=== PATIENT | male | born 1950 | race Caucasian/White ===

== ENCOUNTER 2016-10-27 14:05 | Inpatient (IN) | payer OTHER ==
[2016-10-27 14:33] VITALS: BMI 32.9
--- NOTE | 2016-10-27 14:46 | PDOC ---
History of Present Illness - General History Source: Patient, Family Exam Limitations: No Limitations <Elvi Us - Last Filed: 10/27/16 20:40> <Denise Rollins - Last Filed: 10/28/16 18:55> - General Chief Complaint: Chest Pain Stated Complaint: LEFT LOWER RIB PAIN Time Seen by Provider: 10/27/16 14:21 - History of Present Illness Initial Comments: 10/27/16 14:56 The patient is a 66 year old male with no PMHx who presents to the ED with 10/ 10 sharp, non-radiating, left sided chest pain for 2 days. The patient reports the patient is exacerbated with breathing and movement. He reports associated difficulty breathing, secondary to pain. He reports the pain has progressively worsened since it began two days ago, and the area is now tender to palpation. He took aspirin last night with no relief. He also reports minimal cough and congestion for 3 days. He denies heavy lifting, recent falls or trauma. He denies fever, chills, nausea, vomiting, diarrhea. He denies abdominal pain, headache, dizziness. (Elvi Us) Past History <Elvi Us - Last Filed: 10/27/16 20:40> - Past Medical History Hypercholesterolemia: Yes (NO MEDS) - Psycho/Social/Smoking Cessation Hx Anxiety: No Suicidal Ideation: No Smoking History: Never smoked Hx Alcohol Use: No Drug/Substance Use Hx: No Substance Use Type: None <Denise Rollins - Last Filed: 10/28/16 18:55> - Past Medical History Allergies/Adverse Reactions: Allergies Allergy/AdvReac Type Severity Reaction Status Date / Time No Known Allergies Allergy Unverified 10/27/16 14:13 Home Medications: Ambulatory Orders NK [No Known Home Medication] 10/27/16 Review of Systems - Review of Systems Able to Perform ROS?: Yes <Elvi Us - Last Filed: 10/27/16 20:40> <Denise Rollins - Last Filed: 10/28/16 18:55> - Review of Systems Comments:: 10/27/16 14:56 GENERAL/CONSTITUTIONAL: No: fever, chills, weakness, loss of appetite. HEAD, EYES, EARS, NOSE AND THROAT:(+) congestion. No: change in vision, ear pain, discharge, sore throat, throat swelling. CARDIOVASCULAR: (+) left sided chest pain. No: lightheadedness, palpitations, syncope RESPIRATORY: (+) cough, shortness of breath. No: wheezing, hemoptysis, stridor. GASTROINTESTINAL: No: nausea, vomiting, abdominal cramping, diarrhea, rectal bleeding, constipation. GENITOURINARY: No: dysuria, hematuria, frequency, urgency, flank pain. MUSCULOSKELETAL: No: back pain, neck pain, joint pain, muscle swelling or pain SKIN AND BREASTS: No: lesions, pallor, rash or easy bruising. NEUROLOGIC: No: headache, vertigo, paresthesias, weakness ENDOCRINE: No: unexplained weight gain or loss HEMATOLOGIC/LYMPHATIC: No: anemia, easy bleeding, swelling nodes (Elvi Us) *Physical Exam <Elvi Us - Last Filed: 10/27/16 20:40> <Denise Rollins - Last Filed: 10/28/16 18:55> - Vital Signs Last Vital Signs Temp Pulse Resp BP Pulse Ox 99.8 F H 91 H 20 140/73 98 10/28/16 18:00 10/28/16 18:00 10/28/16 18:00 10/28/16 18:00 10/28/16 08:00 - Physical Exam Comments: 10/27/16 15:08 GENERAL: The patient appears uncomfortable. HEAD: Normal with no signs of trauma. EYES: PERRLA, EOMI, sclera anicteric, conjunctiva clear. ENT: Ears normal, nares patent, oropharynx clear without exudates. Moist mucous membranes. NECK: Normal range of motion, supple without lymphadenopathy, JVD, or masses. LUNGS: Chest is tender to palpation. Breath sounds equal, clear to auscultation bilaterally. No wheezes, and no crackles. HEART: Tachycardic rate and regular rhythm, normal S1 and S2 without murmur, rub or gallop. ABDOMEN: Soft, nontender, normoactive bowel sounds. No guarding, no rebound. EXTREMITIES: Normal range of motion, no edema. No clubbing or cyanosis. No erythema, or tenderness. NEUROLOGICAL: Cranial nerves II through XII grossly intact. Normal speech. No focal neurological deficits. MUSCULOSKELETAL: Back non-tender to palpation, no CVA tenderness SKIN: Warm, Dry, normal turgor, no rashes or lesions noted. (Elvi Us) Heart Score/ECG Review <Elvi Us - Last Filed: 10/27/16 20:40> #1 ECG reviewed & interpreted by me at: 14:48 <Denise Rollins - Last Filed: 10/28/16 18:55> #1 10/27/16 14:48 Twelve-lead EKG was performed and reviewed by me. There is normal sinus rhythm with a normal rate of 96bpm. The axis is normal. The intervals are normal - pr: 152ms, QRS:64ms, Qtc: 394ms. There are no ST or T wave abnormalities. (Denise Rollins) ED Treatment Course - LABORATORY CBC & Chemistry Diagram: 10/27/16 15:10 10/27/16 15:10 <Elvi Us - Last Filed: 10/27/16 20:40> - LABORATORY CBC & Chemistry Diagram: 10/28/16 05:35 10/28/16 05:35 <Denise Rollins - Last Filed: 10/28/16 18:55> - ADDITIONAL ORDERS Additional order review: 10/27/16 15:10 RBC 5.28 MCV 86.3 MCHC 34.3 RDW 11.5 L MPV 7.5 Neutrophils % 75.4 Lymphocytes % 14.4 Monocytes % 8.3 Eosinophils % 1.1 Basophils % 0.8 - RADIOLOGY Radiology Studies Ordered: Category Date Time Status CHEST CTA [CT] Stat CT Scan 10/27/16 17:10 Completed CHEST PA & LAT [RAD] Stat Radiology 10/27/16 14:47 Completed Radiograph Interpretation: 10/27/16 15:40 Chest X-Ray Reported by Dr. Forrest Esposito Impression: No acute intrathoracic abnormality seen. 10/27/16 19:30 Chest CTA Reported by Dr. Paul Mukherjee Impression: Acute pulmonary embolism is identified involving the left lower lobe artery and distal segmental branches. There is mild left lower lobe subpleural opacity laterally and posteriorly probably on the basis of mild edema associated with with previously described embolism. (Elvi Us) - Medications Given in the ED: ED Medications Discontinued Medications Generic Name Dose Route Start Last Admin Trade Name Freq PRN Reason Stop Dose Admin Acetaminophen 1,000 mg 10/28/16 04:22 10/28/16 04:34 Ofirmev Injection - IVPB 10/28/16 04:23 1,000 mg ONCE ONE Administration Morphine Sulfate 4 mg 10/27/16 15:04 10/27/16 15:10 Morphine Injection - IVPUSH 10/27/16 15:05 4 mg ONCE ONE Administration Morphine Sulfate 4 mg 10/27/16 17:17 10/27/16 17:20 Morphine Injection - IVPUSH 10/27/16 17:18 4 mg ONCE ONE Administration Medical Decision Making <Elvi Us - Last Filed: 10/27/16 20:40> <Denise Rollins - Last Filed: 10/28/16 18:55> - Medical Decision Making A portion of this note was documented by scribe services under my direction. I have reviewed the details of the note, within reason, and agree with the documentation with the following case summary and management plan written by me. 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) He denies chest wall trauma Insignificant cough No fevers or chills Yesterday, pain present but did not take pain medications (as it wasnt too bad)\ Today, he awoke with severe pain and has not been able to get comfortable No prior episodes like this Pt crying on examination No rash noted Bilateral breath sounds No traumatic injuries noted RRR No abd tenderness to palpation Will check labs including d dimer CXR Pain medication 10/27/16 15:42 Laboratory Tests 10/27/16 15:10 WBC 11.8 H Hgb 15.6 Hct 45.6 Plt Count 164 Neutrophils % 75.4 Lymphocytes % 14.4 10/27/16 15:43 CXR: no acute pathology 10/27/16 16:10 Laboratory Tests 10/27/16 15:10 Sodium 135 L Potassium 4.2 Chloride 105 Carbon Dioxide 26 BUN 13 Creatinine 0.8 Random Glucose 128 H 10/27/16 16:17 Pt pain improved slightly 10/27/16 16:21 10/27/16 17:10 Laboratory Tests 10/27/16 15:10 D-Dimer 1645 H 10/27/16 17:29 Pt reports more pain Will give morphine CTA ordered CTA demonstrated PE Call placed to Dr. Veras Awaiting response (? Heparin vs. Lovenox ) Pt signed out to Dr Patel Clinical Impression: Acute Pulmonary Embolism (Denise Rollins) *DC/Admit/Observation/Transfer <Elvi Us - Last Filed: 10/27/16 20:40> <Denise Rollins - Last Filed: 10/28/16 18:55> Diagnosis at time of Disposition: Pulmonary embolism - Discharge Dispostion Condition at time of disposition: Stable - Referrals - Attestations Scribe Attestion: 10/27/16 14:56 Documentation prepared by Elvi Us, acting as medical office coordinator for Denise Rollisn MD. (Elvi Us)
[2016-10-27] MEDS ORDERED: morphine CARPU-JECT 4 MG/1 ML DISP.SYRIN IVPUSH ONE ×2 (15:04→17:17)
[2016-10-27] MEDS ORDERED: morphine CARPU-JECT 10 MG/1 ML DISP.SYRIN ONE (15:05)
[2016-10-27 15:41] LABS: BASOPHIL 0.8 % (0-2.0); EOSINOPHIL 1.1 % (0-4.5); MCH 29.6 pg (25.7-33.7); MCHC 34.3 g/dl (32.0-35.9); MEAN CELL VOLUME 86.3 fl (80-96); MEAN PLT VOLUME 7.5 fl (7.5-11.1); NEUTROPHILS 75.4 % (42.8-82.8); PLATELET COUNT 164 K/MM3 (134-434); RDW 11.5 % (11.9-15.9); WHITE BLOOD COUNT 11.8 K/mm3 (4.0-10.0)
[2016-10-27 16:00] LABS: CPK(DFH) 99 IU/L (38-174)
[2016-10-27 16:01] LABS: ALBUMIN 3.3 g/dl (3.5-5.0); ALK PHOS 89 U/L (32-92); ANION GAP 4 (8-16); BILIRUBIN,TOTAL 0.8 mg/dl (0.2-1.0); CALCIUM 9.3 mg/dl (8.4-10.2); CO2 26 mmol/L (22-28); CREATININE 0.8 mg/dl (0.6-1.3); GLUCOSE,RANDOM 128 mg/dl (74-106); SGOT/AST 31 U/L (10-42); SGPT/ALT 24 U/L (10-40); TOT PROT 6.6 g/dl (6.4-8.3)
[2016-10-27 16:55] LABS: TROPONIN I (DFP) < 0.03 ng/ml (0.03-0.50)
[2016-10-27 19:27] LABS: ACTIVATED PTT 29.8 SECONDS (24.0-38.9)
--- NOTE | 2016-10-27 19:28 | PDOC ---
*Physical Exam - Vital Signs Last Vital Signs Temp Pulse Resp BP Pulse Ox 99.1 F 96 H 16 107/69 97 10/27/16 14:13 10/27/16 17:16 10/27/16 17:16 10/27/16 17:16 10/27/16 17:16 ED Treatment Course - LABORATORY CBC & Chemistry Diagram: 10/27/16 15:10 10/27/16 15:10 - ADDITIONAL ORDERS Additional order review: Laboratory Results 10/27/16 10/27/16 10/27/16 19:00 15:10 15:10 D-Dimer Sodium 135 L Potassium 4.2 Chloride 105 Carbon Dioxide 26 Anion Gap 4 L BUN 13 Creatinine 0.8 Creat Clearance w eGFR > 60 Random Glucose 128 H Calcium 9.3 Total Bilirubin 0.8 AST 31 ALT 24 Alkaline Phosphatase 89 Creatine Kinase 99 Troponin I < 0.03 L Total Protein 6.6 Albumin 3.3 L Stool Occult Blood Negative 10/27/16 15:10 D-Dimer 1645 H Sodium Potassium Chloride Carbon Dioxide Anion Gap BUN Creatinine Creat Clearance w eGFR Random Glucose Calcium Total Bilirubin AST ALT Alkaline Phosphatase Creatine Kinase Troponin I Total Protein Albumin Stool Occult Blood 10/27/16 15:10 RBC 5.28 MCV 86.3 MCHC 34.3 RDW 11.5 L MPV 7.5 Neutrophils % 75.4 Lymphocytes % 14.4 Monocytes % 8.3 Eosinophils % 1.1 Basophils % 0.8 - Medications Given in the ED: ED Medications Discontinued Medications Generic Name Dose Route Start Last Admin Trade Name Freq PRN Reason Stop Dose Admin Morphine Sulfate 4 mg 10/27/16 15:04 10/27/16 15:10 Morphine Injection - IVPUSH 10/27/16 15:05 4 mg ONCE ONE Administration Morphine Sulfate 4 mg 10/27/16 17:17 10/27/16 17:20 Morphine Injection - IVPUSH 10/27/16 17:18 4 mg ONCE ONE Administration Progress Note - Progress Note Progress Note: Care of this patient received from Dr. Rollins. [facility] Patient will be started on full dose IV heparin protocol. MELLO Farmer, in ICU at [facility] contacted as per request of Dr. Veras. After Dr. Veras and nurse practitioner Darian discussed the case, patient will be admitted to telemetry at [facility]. *DC/Admit/Observation/Transfer Diagnosis at time of Disposition: Pulmonary embolism Qualifiers: Pulmonary embolism type: other Chronicity: acute Acute cor pulmonale presence: without acute cor pulmonale Qualified Code(s): I26.99 - Other pulmonary embolism without acute cor pulmonale - Discharge Dispostion Condition at time of disposition: Stable Admit: Yes - Referrals - Patient Instructions - Post Discharge Activity
[2016-10-27 19:31] LABS: INR 1.19 (0.82-1.09); PROTHROMBIN TIME (PATIENT) 13.3 SEC (10.2-13.0)
[2016-10-27] MEDS ORDERED: HEPARIN INFUSION - 500 ML IVPB ONE (20:25)
[2016-10-27] MEDS: HEPARIN - 25,000 UNIT in SODIUM CHLORIDE 495 ML IV SCH (20:37)
[2016-10-27] MEDS ORDERED: ACETAMINOPHEN 325 MG TABLET (FP) PO PRN (21:20)
--- NOTE | 2016-10-27 21:44 | HP ---
Admitting History and Physical - Primary Care Physician PCP: Marissa Veras - Admission History of Present Illness: The patient is a 66 year old male with no PMHx who presents to the ED with 10/ 10 sharp, non-radiating, left sided chest pain for 2 days. The patient reports the patient is exacerbated with breathing and movement. He reports associated difficulty breathing, secondary to pain. He reports the pain has progressively worsened since it began two days ago, and the area is now tender to palpation. - Smoking History Smoking history: Never smoked - Alcohol/Substance Use Hx Alcohol Use: No Home Medications - Allergies Allergies/Adverse Reactions: Allergies Allergy/AdvReac Type Severity Reaction Status Date / Time No Known Allergies Allergy Unverified 10/27/16 14:13 - Home Medications Home Medications: Ambulatory Orders NK [No Known Home Medication] 10/27/16 Physical Examination Vital Signs: Vital Signs Temperature 100.2 F H 10/27/16 21:08 Pulse Rate 107 H 10/27/16 21:20 Respiratory Rate 21 10/27/16 21:34 Blood Pressure 111/76 10/27/16 21:20 O2 Sat by Pulse Oximetry (%) 96 10/27/16 21:20 Constitutional: Yes: No Distress HENT: Yes: Atraumatic Neck: Yes: Supple Cardiovascular: Yes: Regular Rate and Rhythm Respiratory: Yes: CTA Bilaterally Gastrointestinal: Yes: Normal Bowel Sounds Extremities: Yes: WNL Neurological: Yes: Alert, Oriented Labs: CBC, BMP 10/27/16 15:10 10/27/16 15:10 Problem List - Problems (1) Pulmonary embolism Assessment/Plan: iv heparin per protocol cardio and pulmonary consult will get dr dyer involved Code(s): I26.99 - OTHER PULMONARY EMBOLISM WITHOUT ACUTE COR PULMONALE Qualifiers: Pulmonary embolism type: other Chronicity: acute Acute cor pulmonale presence: without acute cor pulmonale Qualified Code(s): I26.99 - Other pulmonary embolism without acute cor pulmonale (2) Anxiety and depression Code(s): F41.9 - ANXIETY DISORDER, UNSPECIFIED F32.9 - MAJOR DEPRESSIVE DISORDER, SINGLE EPISODE, UNSPECIFIED (3) Chest pain Code(s): R07.9 - CHEST PAIN, UNSPECIFIED (4) HTN (hypertension) Code(s): I10 - ESSENTIAL (PRIMARY) HYPERTENSION
[2016-10-28] MEDS: HEPARIN - 25,000 UNIT in SODIUM CHLORIDE 495 ML IV SCH ×2 (04:04→20:40)
[2016-10-28] MEDS: HEPARIN NA (PORCINE) 5,000 UNITS/ML 1ML VIAL IVPUSH PRN (04:05)
[2016-10-28] MEDS ORDERED: HEPARIN NA (PORCINE) 5,000 UNITS/ML 1ML VIAL ONE (04:07)
[2016-10-28] MEDS ORDERED: ACETAMINOPHEN 1000 MG/100 ML VIAL (NON FORMULARY) IVPB ONE (04:22)
--- NOTE | 2016-10-28 04:31 | HOSP ---
Subjective - Review of Symptoms Events since last encounter: Was paged by the nurse at 4:00 am and mentioned that patient has been complaining of severe left sided chest pain. Went to assess the patient. Nurse mentioned that she called Dr. Veras but was unable to be reached, hence called the hospitalist service. As per the patient, his left sided chest pain has been getting worse, increases when he takes deep inspiration, stabbing in quality, 11/10 in intensity, radiating towards the left shoulder. But denies numbness, tingling sensation of the arms, palpitation, cough, abdominal pain, nausea or vomiting. Gives h/o flying to [place] (3 hours flight) 2 weeks back. Physical examination: Vitals; BP - 134/101mmHg; P-96bpm, Spo2-100 @ 2L nasal oxygen General: Awake, alert, oriented x 3, in mild respiratory distress. HEENT: EOM intact, no pallor or icterus. Chest: B/L equal air entry, breath sounds decreased on the left base than the right. No wheeze or crackles. CVS: Tachycardic, regular rate and rhythm, S1, S2 no murmur. Abdomen: Reducible umbilical hernia, soft, non tender, no organomegaly. Ext: No calf tenderness, b/l peripheral pulses palpable, no peripheral edema. A/P Patient is a 66 year old male with no PMHx who presents to the ED with 10/10 sharp, non-radiating, left sided chest pain for 2 days admitted with the diagnosis of Pulmonary Embolism. # Severe left sided chest pain likely due to Pulmonary embolism. Troponin x 1 negative Ordered IV tylenol one dose Will order CBC, CMP, Troponin stat, cxr Patient is already on IV Heparin protocol. If symptoms worsen, will inform Dr. Veras. Plan of care explained to the patient. He verbalized understanding. Physical Examination Vital Signs: Vital Signs Temperature 99.1 F 10/28/16 02:00 Pulse Rate 96 H 10/28/16 02:00 Respiratory Rate 20 10/28/16 02:00 Blood Pressure 126/86 10/28/16 02:00 O2 Sat by Pulse Oximetry (%) 96 10/28/16 00:28 Visit type - Emergency Visit Emergency Visit: Yes ED Registration Date: 10/27/16 Care time: The patient presented to the Emergency Department on the above date and was hospitalized for further evaluation of their emergent condition. - New Patient This patient is new to me today: Yes Date on this admission: 10/28/16 - Critical Care Critical Care patient: No
[2016-10-28 07:57] LABS: MCHC 33.7 g/dl (32.0-35.9); MEAN PLT VOLUME 7.7 fl (7.5-11.1); PLATELET COUNT 144 K/MM3 (134-434); RDW 12.6 % (11.9-15.9); WHITE BLOOD COUNT 11.2 K/mm3 (4.0-10.0)
[2016-10-28 08:26] LABS: ALBUMIN 2.6 g/dl (3.4-5.0); ALK PHOS 88 U/L (45-117); ANION GAP 12 (8-16); BILIRUBIN,TOTAL 0.8 mg/dL (0.2-1.0); CALCIUM 8.9 mg/dL (8.5-10.1); CO2 26 mmol/L (21-32); CREATININE 0.8 mg/dL (0.7-1.3); GLUCOSE,RANDOM 113 mg/dL (74-106); SGOT/AST 13 U/L (15-37); SGPT/ALT 19 U/L (12-78); TOT PROT 5.8 g/dl (6.4-8.2)
--- NOTE | 2016-10-28 09:12 | CON.CARD ---
Consult Consult Specialty:: cardiology Reason for Consultation:: shortness of breath; chest pain; acute PE. - History of Present Illness Chief Complaint: Pt A&Ox3; less dyspnea; depressed. History of Present Illness: The patient is a 66 year old male (b. [place]) with no PMHx ( nonsmoker; no alcohol), who presents to the ED with 10/10 sharp, non-radiating, left sided chest pain for 2 days. The patient reports the patient is exacerbated with breathing and movement. He reports associated difficulty breathing, secondary to pain. He reports the pain has progressively worsened since it began two days ago, and the area is now tender to palpation. He took aspirin last night with no relief. He also reports minimal cough and congestion for 3 days. He denies heavy lifting, recent falls or trauma. He denies fever, chills, nausea, vomiting, diarrhea. He denies abdominal pain, headache, dizziness. Pt says he flew to [place] from [place] two weeks ago, then went to watch a baseball game that night; he barely moved for hours while in the plane and at the game. He is depressed, saying he was never hospitalized before. - History Source History Provided By: Patient, Medical Record Limitations to Obtaining History: No Limitations - Past Medical History Psych: Yes: Anxiety, Depression (?reactive (frightened; says he has never been hospitalized before)) - Past Surgical History Additional Surgical History: right femur fracture repair (age 20). - Alcohol/Substance Use Hx Alcohol Use: No - Smoking History Smoking history: Never smoked Home Medications - Allergies Allergies/Adverse Reactions: Allergies Allergy/AdvReac Type Severity Reaction Status Date / Time No Known Allergies Allergy Unverified 10/27/16 14:13 - Home Medications Home Medications: Ambulatory Orders NK [No Known Home Medication] 10/27/16 Family Disease History - Family Disease History Family Disease History: Other: Mother (hip replacement in her 80s after MVA; complication-->rt leg AKA) Review of Systems - Review of Systems Constitutional: reports: No Symptoms Eyes: reports: No Symptoms HENT: reports: No Symptoms Neck: reports: No Symptoms Cardiovascular: reports: Chest Pain Musculoskeletal: reports: Muscle Pain Integumentary: reports: No Symptoms Neurological: reports: No Symptoms Endocrine: reports: No Symptoms Psychiatric: reports: Anxiety, Depression - Risk Factors Known Risk Factors: Yes: Age, Gender, Physical Inactivity, Other (overweight) Vital Signs: Vital Signs Temperature 98.1 F 10/28/16 08:00 Pulse Rate 88 10/28/16 08:00 Respiratory Rate 22 10/28/16 08:00 Blood Pressure 112/69 10/28/16 08:00 O2 Sat by Pulse Oximetry (%) 96 10/28/16 00:28 Constitutional: Yes: Anxious, Mild Distress Eyes: Yes: WNL HENT: Yes: WNL Neck: Yes: WNL Respiratory: Yes: Regular Gastrointestinal: Yes: Soft, Abdomen, Obese Renal/: No: Anuria Cardiovascular: Yes: Regular Rate and Rhythm JVD: No Carotid Bruit: No PMI: Non-Displaced Heart Sounds: Yes: S1, S2 Musculoskeletal: Yes: Muscle Pain, Muscle Weakness Extremities: Yes: Cool Edema: No Peripheral Pulses WNL: Yes Integumentary: Yes: WNL Neurological: Yes: WNL Psychiatric: Yes: Other (anxiety/depression) - Other Data Labs, Other Data: CBC, BMP 10/28/16 05:35 10/28/16 05:35 INR, PTT INR 1.19 (0.82-1.09) 10/27/16 19:00 Imaging - Results Cat Scan: Image Reviewed ( acute PE) EKG: Image Reviewed (NSR; LAE) Problem List - Problems (1) Pulmonary embolism Assessment/Plan: On IV heparin until oral agent (warfarin or NOAC) is started. F/u TSH and lipids. ECHO for LVEF and RVEF, chamber sizes. Code(s): I26.99 - OTHER PULMONARY EMBOLISM WITHOUT ACUTE COR PULMONALE Qualifiers: Pulmonary embolism type: other Chronicity: acute Acute cor pulmonale presence: without acute cor pulmonale Qualified Code(s): I26.99 - Other pulmonary embolism without acute cor pulmonale (2) HTN (hypertension) Code(s): I10 - ESSENTIAL (PRIMARY) HYPERTENSION (3) Anxiety and depression Assessment/Plan: pt is frightened; says he has never been hospitalized before. Observe; reassurance. Code(s): F41.9 - ANXIETY DISORDER, UNSPECIFIED F32.9 - MAJOR DEPRESSIVE DISORDER, SINGLE EPISODE, UNSPECIFIED
[2016-10-28] MEDS ORDERED: ACETAMINOPHEN 325 MG TABLET (FP) PO PRN (09:24)
[2016-10-28] MEDS ORDERED: oxyCODONE HCL 5 MG TABLET PO PRN (09:24)
[2016-10-28 11:08] LABS: CHOLESTEROL 135 mg/dL (50-200); LDL CHOLESTEROL (ONLY SJRH) 91 mg/dL (5-100)
--- NOTE | 2016-10-28 12:29 | PN ---
Progress Note (short form) - Note Progress Note: PULMONARY CONSULTATION DICTATED 10/29/15 IMP ACUTE PULMONARY EMBOLISM LIKELY PROVOKED SECONDARY TO RECENT TRAVEL CHEST PAIN SYNDROME SECONDARY TO ABOVE PLAN HEPARIN DUPLEX LOWER EXTREMITIES ECHO O2 W/U FOR HYPERCOAGULABLE STATE DR TOWNSEND Problem List - Problems (1) Pulmonary embolism Code(s): I26.99 - OTHER PULMONARY EMBOLISM WITHOUT ACUTE COR PULMONALE Qualifiers: Pulmonary embolism type: other Chronicity: acute Acute cor pulmonale presence: without acute cor pulmonale Qualified Code(s): I26.99 - Other pulmonary embolism without acute cor pulmonale (2) Chest pain Code(s): R07.9 - CHEST PAIN, UNSPECIFIED
--- NOTE | 2016-10-28 13:01 | CONS ---
DATE OF CONSULTATION: 10/28/2016 PULMONARY CONSULTATION REFERRING PHYSICIAN: Marissa Veras MD HISTORY OF PRESENT ILLNESS: The patient is a 66-year-old male who denies significant past medical history, nonsmoker, who was admitted to [facility] with complaint of 3-day history of increasing shortness of breath and left-sided sharp chest pain. The patient states that the pain started 3 days prior to admission. At the time he started having a little mild cough along with increasing shortness of breath. He also complained of left-sided chest pain increasing with inspiration of a 10/10 in severity. He denied any fevers or chills. Of note is he recently traveled to [place] and had a plane ride of about 3-1/[address] and he went to go and see the baseball classics. Apparently when getting off the plane in [place] he noticed that his lower extremities were swollen. He initially did not seek medical attention. He presented to the emergency room with the above. In the emergency room he was noted to have on CTA of the chest a left-sided pulmonary embolism. He was admitted to telemetry and started on intravenous heparin. The patient denies any previous history of DVT or PE in the past. There is no family history of DVT or pulmonary embolism. He denies any hemoptysis. He states that he has had a little weight loss in the past few weeks. He also noted has occasional sweats. 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 PAST MEDICAL HISTORY: Again is unremarkable. PAST SURGICAL HISTORY: He denies any previous surgeries. SOCIAL HISTORY: Nonsmoker. He previously worked as a welder fitter. REVIEW OF SYSTEMS: Positive shortness of breath. Positive left-sided chest pain. Possible mild fever. No nausea. No vomiting. Positive weight loss. Positive mild lower extremity edema. CURRENT MEDICATIONS: Includes heparin, Tylenol, and Roxicodone. PHYSICAL EXAMINATION: General: The patient is a well-developed, well-nourished male awake, alert, and in no acute distress. Vital Signs: He is currently afebrile. Heart rate is 88, O2 saturation is 98% on 2 liters nasal cannula, and blood pressure is 112/69. HEENT: Normocephalic, atraumatic. Neck: Supple. Heart: Regular, S1, S2. Chest: Clear. Abdomen: Soft, bowel sounds are positive. Extremities: No cyanosis or edema. LABORATORY DATA: WBCs of 11.2, hemoglobin of 13.3, hematocrit of 39.5, and a platelet count of 144,000. PTT of 53. D-dimer of 1645. BUN of 14 and creatinine of 0.8. Chest CT is as noted reveals an acute pulmonary embolism in the left lower lobe pulmonary artery. IMPRESSION: Acute pulmonary embolism likely provoked secondary to recent travel. PLAN: Continue intravenous heparin. Obtain echocardiogram. Duplex of lower extremities and also workup of hypercoagulable state. BREANN TOWNSEND M.D. [id number]
--- NOTE | 2016-10-28 18:31 | EKG ---
Test Reason : Blood Pressure : / mmHG Vent. Rate : 096 BPM Atrial Rate : 096 BPM P-R Int : 152 ms QRS Dur : 064 ms QT Int : 312 ms P-R-T Axes : 066 015 057 degrees QTc Int : 394 ms NORMAL SINUS RHYTHM POSSIBLE LEFT ATRIAL ENLARGEMENT BORDERLINE ECG NO PREVIOUS ECGS AVAILABLE Confirmed by AGUSTIN FUNG, SORAIDA ([id number]) on 10/28/2016 6:31:05 PM Referred By: MARYELLEN Confirmed By:SORAIDA VELEZ MD
--- NOTE | 2016-10-28 18:34 | PN ---
Progress Note, Physician - Current Medication List Current Medications: Active Medications Acetaminophen (Tylenol -) 650 mg PO Q6H PRN PRN Reason: FEVER OR PAIN Acetaminophen (Tylenol -) 325 mg PO Q4H PRN PRN Reason: PAIN Stop: 10/31/16 09:23 Heparin Sodium (Porcine) (Heparin -) 1,000 unit IVPUSH PRN PRN PRN Reason: Heparin Last Admin: 10/28/16 04:05 Dose: 1,000 unit Heparin Sodium (Porcine) (Heparin -) 5,000 unit IVPUSH PRN PRN PRN Reason: Heparin Heparin Sodium (Porcine) 25, (000 unit/ Sodium Chloride) 500 mls @ 20 mls/hr IV TITR MARILUZ; 1,000 UNIT/HR PRN Reason: Protocol Last Titration: 10/28/16 11:11 Dose: 1,100 unit/hr Oxycodone HCl (Roxicodone -) 5 mg PO Q4H PRN PRN Reason: PAIN - Objective Vital Signs: Vital Signs Temperature 99.8 F H 10/28/16 18:00 Pulse Rate 91 H 10/28/16 18:00 Respiratory Rate 20 10/28/16 18:00 Blood Pressure 140/73 10/28/16 18:00 O2 Sat by Pulse Oximetry (%) 98 10/28/16 08:00 Constitutional: Yes: No Distress HENT: Yes: Atraumatic Neck: Yes: Supple Cardiovascular: Yes: Regular Rate and Rhythm Respiratory: Yes: CTA Bilaterally Gastrointestinal: Yes: Normal Bowel Sounds Extremities: Yes: WNL Neurological: Yes: Alert, Oriented Labs: CBC, BMP 10/28/16 05:35 10/28/16 05:35 INR, PTT INR 1.19 (0.82-1.09) 10/27/16 19:00 Problem List - Problems (1) Pulmonary embolism Assessment/Plan: on iv heparin doppler b/l dottie ordered Code(s): I26.99 - OTHER PULMONARY EMBOLISM WITHOUT ACUTE COR PULMONALE Qualifiers: Pulmonary embolism type: other Chronicity: acute Acute cor pulmonale presence: without acute cor pulmonale Qualified Code(s): I26.99 - Other pulmonary embolism without acute cor pulmonale (2) Chest pain Assessment/Plan: probably due to PE troponin negative Code(s): R07.9 - CHEST PAIN, UNSPECIFIED (3) HTN (hypertension) Code(s): I10 - ESSENTIAL (PRIMARY) HYPERTENSION
--- NOTE | 2016-10-28 21:17 | CONSULT ---
Consult - text type - Consultation Consultation Note: The patient is a 66 year old male (b. [facility] [place]) with no PMHx ( nonsmoker; no alcohol), who presented with sharp, non-radiating, left sided chest pain for 2 days. The patient reports the patient is exacerbated with breathing and movement. He reports associated difficulty breathing, secondary to pain. He also reports minimal cough and congestion for 3 days. He denies heavy lifting, recent falls or trauma. He denies fever, chills, nausea, vomiting , diarrhea. He denies abdominal pain, headache, dizziness. Pt says he flew to [place] from [place] two weeks ago, then went to watch a baseball game that night; he barely moved while in the plane and at the game. - Smoking History Smoking history: Never smoked No h/o alcohol Family h/o noncontributory Home Medications - Allergies Allergies/Adverse Reactions: Allergies Allergy/AdvReac Type Severity Reaction Status Date / Time No Known Allergies Allergy Unverified 10/27/16 14:13 - Home Medications Home Medications: Ambulatory Orders NK [No Known Home Medication] 10/27/16 Vital Signs: Vital Signs Temperature 98.1 F 10/28/16 08:00 Pulse Rate 88 10/28/16 08:00 Respiratory Rate 22 10/28/16 08:00 Blood Pressure 112/69 10/28/16 08:00 O2 Sat by Pulse Oximetry (%) 96 10/28/16 00:28 HEENT: MICHAEL, EOM Intact Oropharynx: No thrush, No mucositis Neck: Supple Nodes: Without adenopathy Cor: RSR, No murmurs, No gallops Lungs: Clear to P&A Abd: Soft, Normal bowel sounds, No organomegaly Ext:No significant edema Abnormal Lab Results 10/28/16 10/28/16 10/28/16 05:35 05:35 10:25 WBC 11.2 H PTT (Actin FS) 53.4 H Random Glucose 113 H AST 13 L Total Protein 5.8 L Albumin 2.6 L HDL Cholesterol TSH 10/28/16 10/28/16 10:25 10:25 WBC PTT (Actin FS) Random Glucose AST Total Protein Albumin HDL Cholesterol 39 L TSH < 0.01 L Current Medications Generic Name Dose Route Start Last Admin Trade Name Freq PRN Reason Stop Dose Admin Acetaminophen 650 mg 10/27/16 21:20 Tylenol - PO Q6H PRN FEVER OR PAIN Acetaminophen 325 mg 10/28/16 09:24 10/28/16 20:35 Tylenol - PO 10/31/16 09:23 325 mg Q4H PRN Administration PAIN Heparin Sodium (Porcine) 1,000 unit 10/27/16 20:22 10/28/16 04:05 Heparin - IVPUSH 1,000 unit PRN PRN Administration Heparin Heparin Sodium (Porcine) 5,000 unit 10/27/16 20:22 Heparin - IVPUSH PRN PRN Heparin Heparin Sodium (Porcine) 25, 500 mls @ 20 mls/hr 10/27/16 20:30 10/28/16 20:40 000 unit/ Sodium Chloride IV 22 mls/hr TITR MARILUZ Administration Protocol 1,000 UNIT/HR Oxycodone HCl 5 mg 10/28/16 09:24 10/28/16 20:35 Roxicodone - PO 5 mg Q4H PRN Administration PAIN A/P 66 y/o male with LLL lobar/segmental PE, presenting with pleuritic chest pain. Recent travel to [place] 2weeks ago. ? provoked DVT On heparin drip normal baseline Pt/PTT/renal function/liver enzymes.platelets [id number] Could consider switching to NOACs--- Eliquis 10mg bid for 7days followed by 5mg bid OR Xeralto 15mg bid for 3 weeks followed by 20mg daily with food Will need age appropriate malignancy w/u reports having had colonoscopy a year ago which was nl per patient not anemic. prostate cancer screening as out patient will discuss with primary team
[2016-10-29 07:46] LABS: INR 1.22 (0.82-1.09); PROTHROMBIN TIME (PATIENT) 13.5 SEC (9.98-11.88)
[2016-10-29 07:49] LABS: ACTIVATED PTT 34.9 SECONDS (26.9-34.4)
[2016-10-29] MEDS ORDERED: HEPARIN NA (PORCINE) 5,000 UNITS/ML 1ML VIAL ONE (08:18)
[2016-10-29] MEDS: HEPARIN NA (PORCINE) 5,000 UNITS/ML 1ML VIAL IVPUSH PRN (08:19)
[2016-10-29] MEDS: HEPARIN - 25,000 UNIT in SODIUM CHLORIDE 495 ML IV SCH ×2 (08:20→20:35)
--- NOTE | 2016-10-29 10:24 | PN ---
Progress Note, Physician Chief Complaint: Pt A&Ox3; + chest pain when breathes in deeply; had left thigh pain starting 10 days ago, which is now intermittent and mild History of Present Illness: The patient is a 66 year old male (b. [place]) with no PMHx ( nonsmoker; no alcohol), who presents to the ED with 10/10 sharp, non-radiating, left sided chest pain for 2 days. The patient reports the patient is exacerbated with breathing and movement. He reports associated difficulty breathing, secondary to pain. He reports the pain has progressively worsened since it began two days ago, and the area is now tender to palpation. He took aspirin last night with no relief. He also reports minimal cough and congestion for 3 days. He denies heavy lifting, recent falls or trauma. He denies fever, chills, nausea, vomiting, diarrhea. He denies abdominal pain, headache, dizziness. Pt says he flew to [place] from [place] two weeks ago, then went to watch a baseball game that night; he barely moved for hours while in the plane and at the game. He is depressed, saying he was never hospitalized before. - Current Medication List Current Medications: Active Medications Acetaminophen (Tylenol -) 650 mg PO Q6H PRN PRN Reason: FEVER OR PAIN Acetaminophen (Tylenol -) 325 mg PO Q4H PRN PRN Reason: PAIN Stop: 10/31/16 09:23 Last Admin: 10/28/16 20:35 Dose: 325 mg Heparin Sodium (Porcine) (Heparin -) 1,000 unit IVPUSH PRN PRN PRN Reason: Heparin Last Admin: 10/28/16 04:05 Dose: 1,000 unit Heparin Sodium (Porcine) (Heparin -) 5,000 unit IVPUSH PRN PRN PRN Reason: Heparin Last Admin: 10/29/16 08:19 Dose: 5,000 unit Heparin Sodium (Porcine) 25, (000 unit/ Sodium Chloride) 500 mls @ 20 mls/hr IV TITR MARILUZ; 1,000 UNIT/HR PRN Reason: Protocol Last Admin: 10/29/16 08:20 Dose: 25 mls/hr Oxycodone HCl (Roxicodone -) 5 mg PO Q4H PRN PRN Reason: PAIN Last Admin: 10/28/16 20:35 Dose: 5 mg - Objective Vital Signs: Vital Signs Temperature 99.7 F H 10/29/16 07:37 Pulse Rate 89 10/29/16 07:37 Respiratory Rate 18 10/29/16 07:43 Blood Pressure 124/77 10/29/16 07:37 O2 Sat by Pulse Oximetry (%) 98 10/29/16 07:43 Constitutional: Yes: Anxious Eyes: Yes: WNL HENT: Yes: WNL Neck: Yes: WNL Cardiovascular: Yes: WNL Respiratory: Yes: Diminished Gastrointestinal: Yes: WNL ...Rectal Exam: Yes: Deferred Genitourinary: No: Anuria Breast(s): Yes: WNL Musculoskeletal: Yes: WNL Extremities: Yes: WNL Edema: No Peripheral Pulses WNL: Yes Integumentary: Yes: WNL Neurological: Yes: WNL Psychiatric: Yes: Other (anxiety/depression) Labs: CBC, BMP 10/28/16 05:35 10/28/16 05:35 INR, PTT INR 1.22 (0.82-1.09) H 10/29/16 05:35 - ....Imaging EKG: Image Reviewed (NSR) Other: Other (telemetry: no arrhythmias) Problem List - Problems (1) Pulmonary embolism Assessment/Plan: On IV heparin until oral agent (warfarin or NOAC) is started. TSH < 0.01: f/u TFTs. LDL cholesterol 91 mg/dL. ECHO for LVEF and RVEF, chamber sizes. Code(s): I26.99 - OTHER PULMONARY EMBOLISM WITHOUT ACUTE COR PULMONALE Qualifiers: Pulmonary embolism type: other Chronicity: acute Acute cor pulmonale presence: without acute cor pulmonale Qualified Code(s): I26.99 - Other pulmonary embolism without acute cor pulmonale (2) HTN (hypertension) Code(s): I10 - ESSENTIAL (PRIMARY) HYPERTENSION (3) Anxiety and depression Assessment/Plan: pt is still frightened; says he has never been hospitalized before. Continue observation; reassurance. Code(s): F41.9 - ANXIETY DISORDER, UNSPECIFIED F32.9 - MAJOR DEPRESSIVE DISORDER, SINGLE EPISODE, UNSPECIFIED
--- NOTE | 2016-10-29 11:12 | PN ---
Progress Note, Physician History of Present Illness: PULMONARY ALERT,FEELING BETTER,LESS DYSPNEIC,LESS CP. DUPLEX +LLE DVT - Current Medication List Current Medications: Active Medications Acetaminophen (Tylenol -) 650 mg PO Q6H PRN PRN Reason: FEVER OR PAIN Acetaminophen (Tylenol -) 325 mg PO Q4H PRN PRN Reason: PAIN Stop: 10/31/16 09:23 Last Admin: 10/28/16 20:35 Dose: 325 mg Heparin Sodium (Porcine) (Heparin -) 1,000 unit IVPUSH PRN PRN PRN Reason: Heparin Last Admin: 10/28/16 04:05 Dose: 1,000 unit Heparin Sodium (Porcine) (Heparin -) 5,000 unit IVPUSH PRN PRN PRN Reason: Heparin Last Admin: 10/29/16 08:19 Dose: 5,000 unit Heparin Sodium (Porcine) 25, (000 unit/ Sodium Chloride) 500 mls @ 20 mls/hr IV TITR MARILUZ; 1,000 UNIT/HR PRN Reason: Protocol Last Admin: 10/29/16 08:20 Dose: 25 mls/hr Oxycodone HCl (Roxicodone -) 5 mg PO Q4H PRN PRN Reason: PAIN Last Admin: 10/28/16 20:35 Dose: 5 mg - Objective Vital Signs: Vital Signs Temperature 99.7 F H 10/29/16 07:37 Pulse Rate 89 10/29/16 07:37 Respiratory Rate 18 10/29/16 07:43 Blood Pressure 124/77 10/29/16 07:37 O2 Sat by Pulse Oximetry (%) 98 10/29/16 07:43 Constitutional: Yes: Well Nourished, Calm Eyes: Yes: WNL HENT: Yes: WNL Neck: Yes: WNL Cardiovascular: Yes: Regular Rate and Rhythm, S1, S2 Respiratory: Yes: CTA Bilaterally Gastrointestinal: Yes: WNL Extremities: Yes: WNL Edema: No Labs: CBC, BMP 10/28/16 05:35 10/28/16 05:35 INR, PTT INR 1.22 (0.82-1.09) H 10/29/16 05:35 Problem List - Problems (1) Pulmonary embolism Code(s): I26.99 - OTHER PULMONARY EMBOLISM WITHOUT ACUTE COR PULMONALE Qualifiers: Pulmonary embolism type: other Chronicity: acute Acute cor pulmonale presence: without acute cor pulmonale Qualified Code(s): I26.99 - Other pulmonary embolism without acute cor pulmonale (2) Chest pain Code(s): R07.9 - CHEST PAIN, UNSPECIFIED Assessment/Plan IMP ACUTE PULMONARY EMBOLISM LIKELY PROVOKED SECONDARY TO RECENT TRAVEL CHEST PAIN SYNDROME SECONDARY TO ABOVE PLAN HEPARIN CONSIDER XARELTOELIQUIS DUPLEX LOWER EXTREMITIES ECHO O2 W/U FOR HYPERCOAGULABLE STATE DR TOWNSEND Problem List - Problems (1) Pulmonary embolism Code(s): I26.99 - OTHER PULMONARY EMBOLISM WITHOUT ACUTE COR PULMONALE Qualifiers: Pulmonary embolism type: other Chronicity: acute Acute cor pulmonale presence: without acute cor pulmonale Qualified Code(s): I26.99 - Other pulmonary embolism without acute cor pulmonale (2) Chest pain Code(s): R07.9 - CHEST PAIN, UNSPECIFIED
--- NOTE | 2016-10-29 17:20 | PN ---
Progress Note, Physician History of Present Illness: stable - Current Medication List Current Medications: Active Medications Acetaminophen (Tylenol -) 650 mg PO Q6H PRN PRN Reason: FEVER OR PAIN Acetaminophen (Tylenol -) 325 mg PO Q4H PRN PRN Reason: PAIN Stop: 10/31/16 09:23 Last Admin: 10/28/16 20:35 Dose: 325 mg Heparin Sodium (Porcine) (Heparin -) 1,000 unit IVPUSH PRN PRN PRN Reason: Heparin Last Admin: 10/28/16 04:05 Dose: 1,000 unit Heparin Sodium (Porcine) (Heparin -) 5,000 unit IVPUSH PRN PRN PRN Reason: Heparin Last Admin: 10/29/16 08:19 Dose: 5,000 unit Heparin Sodium (Porcine) 25, (000 unit/ Sodium Chloride) 500 mls @ 20 mls/hr IV TITR MARILUZ; 1,000 UNIT/HR PRN Reason: Protocol Last Admin: 10/29/16 08:20 Dose: 25 mls/hr Oxycodone HCl (Roxicodone -) 5 mg PO Q4H PRN PRN Reason: PAIN Last Admin: 10/28/16 20:35 Dose: 5 mg - Objective Vital Signs: Vital Signs Temperature 98.7 F 10/29/16 14:00 Pulse Rate 86 10/29/16 14:00 Respiratory Rate 19 10/29/16 14:00 Blood Pressure 119/71 10/29/16 14:00 O2 Sat by Pulse Oximetry (%) 98 10/29/16 07:43 Constitutional: Yes: No Distress HENT: Yes: Atraumatic Neck: Yes: Supple Cardiovascular: Yes: Regular Rate and Rhythm Respiratory: Yes: CTA Bilaterally Gastrointestinal: Yes: Normal Bowel Sounds Extremities: Yes: WNL Neurological: Yes: Alert, Oriented Labs: CBC, BMP 10/28/16 05:35 10/28/16 05:35 INR, PTT INR 1.22 (0.82-1.09) H 10/29/16 05:35 Problem List - Problems (1) Pulmonary embolism Assessment/Plan: on iv heparin doppler b/l dottie ...DVT LLEX Code(s): I26.99 - OTHER PULMONARY EMBOLISM WITHOUT ACUTE COR PULMONALE Qualifiers: Pulmonary embolism type: other Chronicity: acute Acute cor pulmonale presence: without acute cor pulmonale Qualified Code(s): I26.99 - Other pulmonary embolism without acute cor pulmonale (2) Chest pain Code(s): R07.9 - CHEST PAIN, UNSPECIFIED (3) HTN (hypertension) Code(s): I10 - ESSENTIAL (PRIMARY) HYPERTENSION
--- NOTE | 2016-10-29 17:37 | PN ---
Progress Note (short form) - Note Progress Note: PAtient seen and examined Denies any complaints Last Vital Signs Temp Pulse Resp BP Pulse Ox 98.7 F 86 19 119/71 98 10/29/16 14:00 10/29/16 14:00 10/29/16 14:00 10/29/16 14:00 10/29/16 07:43 HEENT: MICHAEL, EOM Intact Oropharynx: No thrush, No mucositis Cor: RSR, No murmurs, No gallops Lungs: Clear to P&A Abd: Soft, Normal bowel sounds, No organomegaly Ext:No significant edema Skin: No rashes, Integument intact Abnormal Lab Results 10/29/16 10/29/16 10/29/16 05:35 09:50 14:20 INR 1.22 H PTT (Actin FS) 34.9 H D 50.1 H D Free T4 2.70 H Active Medications Generic Name Dose Route Start Last Admin Trade Name Freq PRN Reason Stop Dose Admin Acetaminophen 650 mg 10/27/16 21:20 Tylenol - PO Q6H PRN FEVER OR PAIN Acetaminophen 325 mg 10/28/16 09:24 10/28/16 20:35 Tylenol - PO 10/31/16 09:23 325 mg Q4H PRN Administration PAIN Heparin Sodium (Porcine) 1,000 unit 10/27/16 20:22 10/28/16 04:05 Heparin - IVPUSH 1,000 unit PRN PRN Administration Heparin Heparin Sodium (Porcine) 5,000 unit 10/27/16 20:22 10/29/16 08:19 Heparin - IVPUSH 5,000 unit PRN PRN Administration Heparin Heparin Sodium (Porcine) 25, 500 mls @ 20 mls/hr 10/27/16 20:30 10/29/16 08:20 000 unit/ Sodium Chloride IV 25 mls/hr TITR MARILUZ Administration Protocol 1,000 UNIT/HR Oxycodone HCl 5 mg 10/28/16 09:24 10/28/16 20:35 Roxicodone - PO 5 mg Q4H PRN Administration PAIN A/P 66 y/o male with LLL lobar/segmental PE, presenting with pleuritic chest pain. Recent travel to [place] 2weeks ago. ? provoked DVT On heparin drip normal baseline Pt/PTT/renal function/liver enzymes.platelets [id number] Could consider switching to NOACs--- Xeralto 15mg bid for 3 weeks followed by 20mg daily with food. Start at the time of heparin discontinuation Will need age appropriate malignancy w/u reports having had colonoscopy a year ago which was nl per patient not anemic. prostate cancer screening as out patient low TSH/high fT4--endocrine consult will discuss with primary team
--- NOTE | 2016-10-29 22:28 | EKG ---
Test Reason : Blood Pressure : / mmHG Vent. Rate : 088 BPM Atrial Rate : 088 BPM P-R Int : 164 ms QRS Dur : 076 ms QT Int : 340 ms P-R-T Axes : 053 017 042 degrees QTc Int : 411 ms NORMAL SINUS RHYTHM NONSPECIFIC T WAVE ABNORMALITY ABNORMAL ECG WHEN COMPARED WITH ECG OF 27-OCT-2016 14:12, NONSPECIFIC T WAVE ABNORMALITY, WORSE IN LATERAL LEADS Confirmed by AGUSTIN FUNG, SORAIDA ([id number]) on 10/29/2016 10:27:49 PM Referred By: Gabby SCHNEIDER Confirmed By:SORAIDA VELEZ MD
[2016-10-30 07:47] LABS: BASOPHIL 0.4 % (0-2.0); EOSINOPHIL 8.7 % (0-4.5); MCHC 34.3 g/dl (32.0-35.9); MEAN CELL VOLUME 84.4 fl (80-96); MEAN PLT VOLUME 7.5 fl (7.5-11.1); NEUTROPHILS 54.7 % (42.8-82.8); PLATELET COUNT 182 K/MM3 (134-434); WHITE BLOOD COUNT 7.5 K/mm3 (4.0-10.0)
[2016-10-30 07:54] LABS: ALBUMIN 2.4 g/dl (3.4-5.0); ANION GAP 9 (8-16); CALCIUM 9.1 mg/dL (8.5-10.1); CO2 27 mmol/L (21-32); GLUCOSE,RANDOM 101 mg/dL (74-106)
[2016-10-30 07:58] LABS: ALK PHOS 81 U/L (45-117); BILIRUBIN,TOTAL 0.4 mg/dL (0.2-1.0); CREATININE 0.8 mg/dL (0.7-1.3); SGOT/AST 21 U/L (15-37); SGPT/ALT 25 U/L (12-78); TOT PROT 5.8 g/dl (6.4-8.2)
[2016-10-30 08:14] LABS: INR 1.21 (0.82-1.09); PROTHROMBIN TIME (PATIENT) 13.4 SEC (9.98-11.88)
[2016-10-30 08:16] LABS: ACTIVATED PTT 39.4 SECONDS (26.9-34.4)
[2016-10-30] MEDS: HEPARIN NA (PORCINE) 5,000 UNITS/ML 1ML VIAL IVPUSH PRN ×2 (09:17→21:03)
[2016-10-30] MEDS: HEPARIN - 25,000 UNIT in SODIUM CHLORIDE 495 ML IV SCH ×2 (09:18→21:02)
--- NOTE | 2016-10-30 10:53 | PN ---
Progress Note, Physician History of Present Illness: PULMONARY ALERT,FEELING BETTER,LESS CP,-SOB - Current Medication List Current Medications: Active Medications Acetaminophen (Tylenol -) 650 mg PO Q6H PRN PRN Reason: FEVER OR PAIN Acetaminophen (Tylenol -) 325 mg PO Q4H PRN PRN Reason: PAIN Stop: 10/31/16 09:23 Last Admin: 10/28/16 20:35 Dose: 325 mg Heparin Sodium (Porcine) (Heparin -) 1,000 unit IVPUSH PRN PRN PRN Reason: Heparin Last Admin: 10/28/16 04:05 Dose: 1,000 unit Heparin Sodium (Porcine) (Heparin -) 5,000 unit IVPUSH PRN PRN PRN Reason: Heparin Last Admin: 10/30/16 09:17 Dose: 5,000 unit Heparin Sodium (Porcine) 25, (000 unit/ Sodium Chloride) 500 mls @ 20 mls/hr IV TITR MARILUZ; 1,000 UNIT/HR PRN Reason: Protocol Last Admin: 10/30/16 09:18 Dose: 28 mls/hr Oxycodone HCl (Roxicodone -) 5 mg PO Q4H PRN PRN Reason: PAIN Last Admin: 10/28/16 20:35 Dose: 5 mg - Objective Vital Signs: Vital Signs Temperature 98.4 F 10/30/16 07:15 Pulse Rate 74 10/30/16 07:15 Respiratory Rate 18 10/30/16 07:17 Blood Pressure 139/82 10/30/16 07:15 O2 Sat by Pulse Oximetry (%) 97 10/30/16 07:17 Constitutional: Yes: Well Nourished, Calm Eyes: Yes: WNL HENT: Yes: WNL Neck: Yes: WNL Cardiovascular: Yes: Regular Rate and Rhythm, S1, S2 Respiratory: Yes: CTA Bilaterally Gastrointestinal: Yes: Normal Bowel Sounds, Soft Extremities: Yes: WNL Edema: No Labs: CBC, BMP 10/30/16 05:32 10/30/16 05:32 INR, PTT INR 1.21 (0.82-1.09) H 10/30/16 05:32 Problem List - Problems (1) Pulmonary embolism Code(s): I26.99 - OTHER PULMONARY EMBOLISM WITHOUT ACUTE COR PULMONALE Qualifiers: Pulmonary embolism type: other Chronicity: acute Acute cor pulmonale presence: without acute cor pulmonale Qualified Code(s): I26.99 - Other pulmonary embolism without acute cor pulmonale (2) Chest pain Code(s): R07.9 - CHEST PAIN, UNSPECIFIED Assessment/Plan IMP ACUTE PULMONARY EMBOLISM LIKELY PROVOKED SECONDARY TO RECENT TRAVEL CHEST PAIN SYNDROME SECONDARY TO ABOVE LLE DVT PLAN HEPARIN CONSIDER XARELTO,ELIQUIS ECHO O2 W/U FOR HYPERCOAGULABLE STATE DR TOWNSEND Problem List - Problems (1) Pulmonary embolism Code(s): I26.99 - OTHER PULMONARY EMBOLISM WITHOUT ACUTE COR PULMONALE Qualifiers: Pulmonary embolism type: other Chronicity: acute Acute cor pulmonale presence: without acute cor pulmonale Qualified Code(s): I26.99 - Other pulmonary embolism without acute cor pulmonale (2) Chest pain Code(s): R07.9 - CHEST PAIN, UNSPECIFIED
--- NOTE | 2016-10-30 11:26 | PN ---
Progress Note, Physician History of Present Illness: seen and examined today in nad. no overnight events. no new complaints. - Current Medication List Current Medications: Active Medications Acetaminophen (Tylenol -) 650 mg PO Q6H PRN PRN Reason: FEVER OR PAIN Acetaminophen (Tylenol -) 325 mg PO Q4H PRN PRN Reason: PAIN Stop: 10/31/16 09:23 Last Admin: 10/28/16 20:35 Dose: 325 mg Heparin Sodium (Porcine) (Heparin -) 1,000 unit IVPUSH PRN PRN PRN Reason: Heparin Last Admin: 10/28/16 04:05 Dose: 1,000 unit Heparin Sodium (Porcine) (Heparin -) 5,000 unit IVPUSH PRN PRN PRN Reason: Heparin Last Admin: 10/30/16 09:17 Dose: 5,000 unit Heparin Sodium (Porcine) 25, (000 unit/ Sodium Chloride) 500 mls @ 20 mls/hr IV TITR MARILUZ; 1,000 UNIT/HR PRN Reason: Protocol Last Admin: 10/30/16 09:18 Dose: 28 mls/hr Oxycodone HCl (Roxicodone -) 5 mg PO Q4H PRN PRN Reason: PAIN Last Admin: 10/28/16 20:35 Dose: 5 mg - Objective Vital Signs: Vital Signs Temperature 98.4 F 10/30/16 07:15 Pulse Rate 74 10/30/16 07:15 Respiratory Rate 18 10/30/16 07:17 Blood Pressure 139/82 10/30/16 07:15 O2 Sat by Pulse Oximetry (%) 97 10/30/16 07:17 Constitutional: Yes: Well Nourished, No Distress, Calm Eyes: Yes: WNL, Conjunctiva Clear, EOM Intact, PERRL HENT: Yes: WNL, Atraumatic, Normocephalic Neck: Yes: WNL, Supple, Trachea Midline Cardiovascular: Yes: WNL, Regular Rate and Rhythm, S1, S2. No: Bradycardia, Tachycardia, Pulse Irregular, Bruit, JVD, Gallop, Murmur, Rub, S3, S4, Varicosities Respiratory: Yes: WNL, Regular, CTA Bilaterally. No: Rales, Rhonchi, Wheezes Gastrointestinal: Yes: WNL, Normal Bowel Sounds, Soft. No: Distention, Tenderness Musculoskeletal: Yes: WNL Extremities: Yes: WNL Edema: Yes Peripheral Pulses WNL: Yes Peripheral Pulses: Left Doralis Pedis: 2+, Right Dorsalis Pedis: 2+ Integumentary: Yes: WNL Neurological: Yes: WNL, Alert, Oriented, Cran Nerves II-XII Intact ...Motor Strength: WNL Psychiatric: Yes: WNL, Alert, Oriented Labs: CBC, BMP 10/30/16 05:32 10/30/16 05:32 INR, PTT INR 1.21 (0.82-1.09) H 10/30/16 05:32 - ....Imaging Chest X-ray: Report Reviewed, Image Reviewed EKG: Report Reviewed, Image Reviewed Other: Report Reviewed, Image Reviewed (tele-nsr, sinus tach, apcs) Problem List - Problems (1) Anxiety and depression Code(s): F41.9 - ANXIETY DISORDER, UNSPECIFIED F32.9 - MAJOR DEPRESSIVE DISORDER, SINGLE EPISODE, UNSPECIFIED (2) Chest pain Code(s): R07.9 - CHEST PAIN, UNSPECIFIED (3) HTN (hypertension) Code(s): I10 - ESSENTIAL (PRIMARY) HYPERTENSION (4) Pulmonary embolism Code(s): I26.99 - OTHER PULMONARY EMBOLISM WITHOUT ACUTE COR PULMONALE Qualifiers: Pulmonary embolism type: other Chronicity: acute Acute cor pulmonale presence: without acute cor pulmonale Qualified Code(s): I26.99 - Other pulmonary embolism without acute cor pulmonale Assessment/Plan 66 year old man with a history of HTN admitted with sob, chest pain and found to have an acute PE with a LLE DVT. Acute PE and LLE DVT -receiving heparin gtt -pulmonary and hematology evaluated -plan to transition to oral AC with NOAC or coumadin -DVT felt to be provoked from recent plane trip -age appropriate cancer screening to be completed -f/up echo done today to evaluate RV size and function, pulm pressure as well as other structural heart disease -no additional inpatient cardiac work up needed at this point HTN-adequately controlled -unknown if pt has chronic htn, no reported home medications -does not require medical treatment at this time, [facility] outpatient follow up for re-evaluation of HTN
--- NOTE | 2016-10-30 19:53 | PN ---
Progress Note, Physician History of Present Illness: stable - Current Medication List Current Medications: Active Medications Acetaminophen (Tylenol -) 650 mg PO Q6H PRN PRN Reason: FEVER OR PAIN Acetaminophen (Tylenol -) 325 mg PO Q4H PRN PRN Reason: PAIN Stop: 10/31/16 09:23 Last Admin: 10/28/16 20:35 Dose: 325 mg Heparin Sodium (Porcine) (Heparin -) 1,000 unit IVPUSH PRN PRN PRN Reason: Heparin Last Admin: 10/28/16 04:05 Dose: 1,000 unit Heparin Sodium (Porcine) (Heparin -) 5,000 unit IVPUSH PRN PRN PRN Reason: Heparin Last Admin: 10/30/16 09:17 Dose: 5,000 unit Heparin Sodium (Porcine) 25, (000 unit/ Sodium Chloride) 500 mls @ 20 mls/hr IV TITR MARILUZ; 1,000 UNIT/HR PRN Reason: Protocol Last Admin: 10/30/16 09:18 Dose: 28 mls/hr Oxycodone HCl (Roxicodone -) 5 mg PO Q4H PRN PRN Reason: PAIN Last Admin: 10/28/16 20:35 Dose: 5 mg - Objective Vital Signs: Vital Signs Temperature 98.2 F 10/30/16 17:00 Pulse Rate 81 10/30/16 17:00 Respiratory Rate 20 10/30/16 17:00 Blood Pressure 126/72 10/30/16 17:00 O2 Sat by Pulse Oximetry (%) 97 10/30/16 07:17 Constitutional: Yes: No Distress HENT: Yes: Atraumatic Neck: Yes: Supple Cardiovascular: Yes: Regular Rate and Rhythm Respiratory: Yes: CTA Bilaterally Gastrointestinal: Yes: Normal Bowel Sounds Extremities: Yes: WNL Neurological: Yes: Alert, Oriented Labs: CBC, BMP 10/30/16 05:32 10/30/16 05:32 INR, PTT INR 1.21 (0.82-1.09) H 10/30/16 05:32 Problem List - Problems (1) Pulmonary embolism Assessment/Plan: on iv heparin doppler b/l dottie ...DVT LLEX Code(s): I26.99 - OTHER PULMONARY EMBOLISM WITHOUT ACUTE COR PULMONALE Qualifiers: Pulmonary embolism type: other Chronicity: acute Acute cor pulmonale presence: without acute cor pulmonale Qualified Code(s): I26.99 - Other pulmonary embolism without acute cor pulmonale (2) Chest pain Assessment/Plan: probably due to PE troponin negative Code(s): R07.9 - CHEST PAIN, UNSPECIFIED (3) HTN (hypertension) Code(s): I10 - ESSENTIAL (PRIMARY) HYPERTENSION
--- NOTE | 2016-10-30 22:20 | PN ---
Progress Note (short form) - Note Progress Note: PAtient seen and examined Denies any complaints Last Vital Signs Temp Pulse Resp BP Pulse Ox 98.2 F 81 20 126/72 97 10/30/16 17:00 10/30/16 17:00 10/30/16 17:00 10/30/16 17:00 10/30/16 07:17 HEENT: MICHAEL, EOM Intact Oropharynx: No thrush, No mucositis Cor: RSR, No murmurs, No gallops Lungs: Clear to P&A Abd: Soft, Normal bowel sounds, No organomegaly Ext:No significant edema Skin: No rashes, Integument intact Abnormal Lab Results 10/30/16 10/30/16 10/30/16 05:32 05:32 05:32 Monocytes % 11.4 H Eosinophils % 8.7 H INR 1.21 H PTT (Actin FS) 39.4 H Total Protein 5.8 L Albumin 2.4 L 10/30/16 17:15 Monocytes % Eosinophils % INR PTT (Actin FS) 46.1 H Total Protein Albumin Home Medication List Medication Instructions Recorded Confirmed Type NK [No Known Home Medication] 10/27/16 10/27/16 History Active Medications Generic Name Dose Route Start Last Admin Trade Name Freq PRN Reason Stop Dose Admin Acetaminophen 650 mg 10/27/16 21:20 Tylenol - PO Q6H PRN FEVER OR PAIN Acetaminophen 325 mg 10/28/16 09:24 10/28/16 20:35 Tylenol - PO 10/31/16 09:23 325 mg Q4H PRN Administration PAIN Heparin Sodium (Porcine) 1,000 unit 10/27/16 20:22 10/30/16 21:03 Heparin - IVPUSH 1,000 unit PRN PRN Administration Heparin Heparin Sodium (Porcine) 5,000 unit 10/27/16 20:22 10/30/16 09:17 Heparin - IVPUSH 5,000 unit PRN PRN Administration Heparin Heparin Sodium (Porcine) 25, 500 mls @ 20 mls/hr 10/27/16 20:30 10/30/16 21:02 000 unit/ Sodium Chloride IV 30 mls/hr TITR MARILUZ Administration Protocol 1,000 UNIT/HR Oxycodone HCl 5 mg 10/28/16 09:24 10/28/16 20:35 Roxicodone - PO 5 mg Q4H PRN Administration PAIN A/P 66 y/o male with LLL lobar/segmental PE, presenting with pleuritic chest pain. Recent travel to [place] 2weeks ago. ? provoked DVT On heparin drip normal baseline Pt/PTT/renal function/liver enzymes.platelets [id number] Switch to NOACs--- Xeralto 15mg bid for 3 weeks followed by 20mg daily with food or eliquis. Start at the time of heparin discontinuation Will need age appropriate malignancy w/u reports having had colonoscopy a year ago which was nl per patient not anemic. prostate cancer screening as out patient low TSH/high fT4--endocrine consult will discuss with primary team
[2016-10-31] MEDS ORDERED: HEPARIN NA (PORCINE) 5,000 UNITS/ML 1ML VIAL ONE (04:15)
[2016-10-31] MEDS: HEPARIN NA (PORCINE) 5,000 UNITS/ML 1ML VIAL IVPUSH PRN (04:17)
--- NOTE | 2016-10-31 09:40 | PN ---
Progress Note, Physician Chief Complaint: sitting in chair, no distress TELE: NSR - Current Medication List Current Medications: Active Medications Acetaminophen (Tylenol -) 650 mg PO Q6H PRN PRN Reason: FEVER OR PAIN Heparin Sodium (Porcine) (Heparin -) 1,000 unit IVPUSH PRN PRN PRN Reason: Heparin Last Admin: 10/31/16 04:17 Dose: 1,000 unit Heparin Sodium (Porcine) (Heparin -) 5,000 unit IVPUSH PRN PRN PRN Reason: Heparin Last Admin: 10/30/16 09:17 Dose: 5,000 unit Heparin Sodium (Porcine) 25, (000 unit/ Sodium Chloride) 500 mls @ 20 mls/hr IV TITR MARILUZ; 1,000 UNIT/HR PRN Reason: Protocol Last Titration: 10/31/16 04:16 Dose: 1,600 unit/hr - Objective Vital Signs: Vital Signs Temperature 98.8 F 10/31/16 06:00 Pulse Rate 62 10/31/16 06:00 Respiratory Rate 20 10/31/16 06:00 Blood Pressure 110/60 10/31/16 06:00 O2 Sat by Pulse Oximetry (%) 96 10/30/16 21:00 Constitutional: Yes: No Distress Eyes: Yes: Conjunctiva Clear Cardiovascular: Yes: Regular Rate and Rhythm Respiratory: Yes: CTA Bilaterally Gastrointestinal: Yes: Soft Edema: No Neurological: Yes: Alert ...Motor Strength: WNL Labs: CBC, BMP 10/30/16 05:32 10/30/16 05:32 INR, PTT INR 1.21 (0.82-1.09) H 10/30/16 05:32 - ....Imaging EKG: Image Reviewed Assessment/Plan Assessment/Plan 66 year old man with a history of HTN admitted with sob, chest pain and found to have an acute PE with a LLE DVT. Acute PE and LLE DVT -receiving heparin gtt -pulmonary and hematology evaluated -plan to transition to oral AC with NOAC or coumadin-- will defer to Heme -DVT felt to be provoked from recent plane trip -age appropriate cancer screening to be completed -f/u echo was normal
--- NOTE | 2016-10-31 13:23 | PN ---
Progress Note (short form) - Note Progress Note: PULMONARY Still some left sided pleuritic chest pain. No shortness of breath. Last Vital Signs Temp Pulse Resp BP Pulse Ox 98.8 F 62 20 110/60 96 10/31/16 06:00 10/31/16 06:00 10/31/16 06:00 10/31/16 06:00 10/30/16 21:00 Gen: NAD at rest Heart: RRR Lung: clear to auscultation Abd: soft, nontender Ext: no edema CBC, BMP 10/30/16 05:32 10/30/16 05:32 Active Medications Acetaminophen (Tylenol -) 650 mg PO Q6H PRN PRN Reason: FEVER OR PAIN Heparin Sodium (Porcine) (Heparin -) 1,000 unit IVPUSH PRN PRN PRN Reason: Heparin Last Admin: 10/31/16 04:17 Dose: 1,000 unit Heparin Sodium (Porcine) (Heparin -) 5,000 unit IVPUSH PRN PRN PRN Reason: Heparin Last Admin: 10/30/16 09:17 Dose: 5,000 unit Heparin Sodium (Porcine) 25, (000 unit/ Sodium Chloride) 500 mls @ 20 mls/hr IV TITR MARILUZ; 1,000 UNIT/HR PRN Reason: Protocol Last Titration: 10/31/16 04:16 Dose: 1,600 unit/hr A/P Acute Pulmonary Embolism likely provoked LLE DVT Chest Pain - will start eliquis 10mg BID x 7 days, then 5mg BID for at least 3 months - d/c heparin gtt - O2 as needed - hypercoagulable work up as outpt
[2016-10-31] MEDS: APIXABAN 5 MG TABLET PO SCH (13:41)
--- NOTE | 2016-10-31 16:53 | PN ---
Progress Note, Physician History of Present Illness: stable - Current Medication List Current Medications: Active Medications Acetaminophen (Tylenol -) 650 mg PO Q6H PRN PRN Reason: FEVER OR PAIN Apixaban (Eliquis -) 10 mg PO BID MARILUZ Stop: 11/07/16 13:29 Last Admin: 10/31/16 13:41 Dose: 10 mg - Objective Vital Signs: Vital Signs Temperature 99.0 F 10/31/16 15:00 Pulse Rate 89 10/31/16 15:00 Respiratory Rate 20 10/31/16 15:00 Blood Pressure 130/73 10/31/16 15:00 O2 Sat by Pulse Oximetry (%) 98 10/31/16 10:00 Constitutional: Yes: No Distress HENT: Yes: Atraumatic Neck: Yes: Supple Cardiovascular: Yes: Regular Rate and Rhythm Respiratory: Yes: CTA Bilaterally Gastrointestinal: Yes: Normal Bowel Sounds Extremities: Yes: WNL Neurological: Yes: Alert, Oriented Labs: CBC, BMP 10/30/16 05:32 10/30/16 05:32 INR, PTT INR 1.21 (0.82-1.09) H 10/30/16 05:32 Problem List - Problems (1) Pulmonary embolism Assessment/Plan: switched to eliquis dc tomorrow d/w dr dyer she will send in prescription for eliquis Code(s): I26.99 - OTHER PULMONARY EMBOLISM WITHOUT ACUTE COR PULMONALE Qualifiers: Pulmonary embolism type: other Chronicity: acute Acute cor pulmonale presence: without acute cor pulmonale Qualified Code(s): I26.99 - Other pulmonary embolism without acute cor pulmonale (2) Anxiety and depression Code(s): F41.9 - ANXIETY DISORDER, UNSPECIFIED F32.9 - MAJOR DEPRESSIVE DISORDER, SINGLE EPISODE, UNSPECIFIED (3) Chest pain Assessment/Plan: probably due to PE troponin negative improving Code(s): R07.9 - CHEST PAIN, UNSPECIFIED (4) HTN (hypertension) Assessment/Plan: stable on meds Code(s): I10 - ESSENTIAL (PRIMARY) HYPERTENSION
[2016-10-31] MEDS ORDERED: ACETAMINOPHEN 325 MG TABLET (FP) ONE (20:26)
[2016-10-31] MEDS: PANTOPRAZOLE 40 MG TABLET (FP) PO SCH (23:05)
[2016-10-31] MEDS: guaiFENesin 200 MG/10 ML 10 ML UNIT-DOSE CUPS PO PRN (23:45)
[2016-11-01] MEDS: APIXABAN 5 MG TABLET PO SCH (01:26)
[2016-11-01] MEDS ORDERED: APIXABAN 5 MG TABLET PO SCH ×2 (01:35→07:26)
[2016-11-01] MEDS: guaiFENesin 200 MG/10 ML 10 ML UNIT-DOSE CUPS PO PRN (06:16)
[2016-11-01 06:51] LABS: BASOPHIL 0.5 % (0-2.0); EOSINOPHIL 9.8 % (0-4.5); MCH 29.1 pg (25.7-33.7); MCHC 34.4 g/dl (32.0-35.9); MEAN CELL VOLUME 84.7 fl (80-96); MEAN PLT VOLUME 7.1 fl (7.5-11.1); PLATELET COUNT 220 K/MM3 (134-434); RDW 12.6 % (11.9-15.9); WHITE BLOOD COUNT 4.9 K/mm3 (4.0-10.0)
[2016-11-01 07:09] LABS: ALBUMIN 2.7 g/dl (3.4-5.0); ANION GAP 11 (8-16); CALCIUM 9.2 mg/dL (8.5-10.1); CO2 25 mmol/L (21-32); CREATININE 0.8 mg/dL (0.7-1.3); GLUCOSE,RANDOM 99 mg/dL (74-106); SGOT/AST 72 U/L (15-37); SGPT/ALT 68 U/L (12-78)
[2016-11-01 07:10] LABS: ALK PHOS 87 U/L (45-117); BILIRUBIN,TOTAL 0.4 mg/dL (0.2-1.0); TOT PROT 6.1 g/dl (6.4-8.2)
--- NOTE | 2016-11-01 09:39 | PN ---
Progress Note, Physician Chief Complaint: no distress TELE: NSR - Current Medication List Current Medications: Active Medications Acetaminophen (Tylenol -) 650 mg PO Q6H PRN PRN Reason: FEVER OR PAIN Last Admin: 10/31/16 20:28 Dose: 650 mg Apixaban (Eliquis -) 10 mg PO BID@0030,1230 [facility] Guaifenesin (Robitussin -) 10 ml PO Q6H PRN Last Admin: 11/01/16 06:16 Dose: 10 ml Pantoprazole Sodium (Protonix -) 40 mg PO DAILY [facility] Last Admin: 10/31/16 23:05 Dose: 40 mg - Objective Vital Signs: Vital Signs Temperature 98.9 F 11/01/16 06:00 Pulse Rate 86 11/01/16 06:00 Respiratory Rate 20 11/01/16 06:00 Blood Pressure 116/74 11/01/16 06:00 O2 Sat by Pulse Oximetry (%) 96 10/31/16 20:29 Constitutional: Yes: No Distress Cardiovascular: Yes: Regular Rate and Rhythm Respiratory: Yes: CTA Bilaterally Gastrointestinal: Yes: Soft Edema: No Neurological: Yes: Alert, Oriented Labs: CBC, BMP 11/01/16 05:35 11/01/16 05:35 INR, PTT INR 1.21 (0.82-1.09) H 10/30/16 05:32 Laboratory Tests 10/27/16 11/01/16 11/01/16 19:00 05:35 05:35 WBC 4.9 D Hgb 13.9 Plt Count 220 D Potassium 4.0 Creatinine 0.8 Stool Occult Blood Negative - ....Imaging EKG: Image Reviewed Assessment/Plan Assessment/Plan 66 year old man with a history of HTN admitted with sob, chest pain and found to have an acute PE with a LLE DVT. Acute PE and LLE DVT -switched to Eliquis -DVT felt to be provoked from recent plane trip -age appropriate cancer screening to be completed -f/u echo was normal, no further inpatient cardiac work up planned
[2016-11-01] MEDS: PANTOPRAZOLE 40 MG TABLET (FP) PO SCH (09:44)
--- NOTE | 2016-11-01 11:43 | PN ---
Progress Note, Physician History of Present Illness: PULMONARY ALERT,NAD,-SOB,-CP - Current Medication List Current Medications: Active Medications Acetaminophen (Tylenol -) 650 mg PO Q6H PRN PRN Reason: FEVER OR PAIN Last Admin: 10/31/16 20:28 Dose: 650 mg Apixaban (Eliquis -) 10 mg PO BID@0030,1230 [facility] Guaifenesin (Robitussin -) 10 ml PO Q6H PRN Last Admin: 11/01/16 06:16 Dose: 10 ml Pantoprazole Sodium (Protonix -) 40 mg PO DAILY [facility] Last Admin: 11/01/16 09:44 Dose: 40 mg - Objective Vital Signs: Vital Signs Temperature 99.2 F 11/01/16 10:00 Pulse Rate 84 11/01/16 10:00 Respiratory Rate 18 11/01/16 10:00 Blood Pressure 122/83 11/01/16 10:00 O2 Sat by Pulse Oximetry (%) 97 11/01/16 09:00 Constitutional: Yes: Well Nourished, Calm Eyes: Yes: WNL HENT: Yes: WNL Neck: Yes: WNL Cardiovascular: Yes: Regular Rate and Rhythm, S1, S2 Respiratory: Yes: CTA Bilaterally Extremities: Yes: WNL Edema: No Labs: CBC, BMP 11/01/16 05:35 11/01/16 05:35 INR, PTT INR 1.21 (0.82-1.09) H 10/30/16 05:32 Problem List - Problems (1) Pulmonary embolism Code(s): I26.99 - OTHER PULMONARY EMBOLISM WITHOUT ACUTE COR PULMONALE Qualifiers: Pulmonary embolism type: other Chronicity: acute Acute cor pulmonale presence: without acute cor pulmonale Qualified Code(s): I26.99 - Other pulmonary embolism without acute cor pulmonale (2) Chest pain Code(s): R07.9 - CHEST PAIN, UNSPECIFIED (3) DVT (deep venous thrombosis) Code(s): I82.409 - ACUTE EMBOLISM AND THOMBOS UNSP DEEP VN UNSP LOWER EXTREMITY (4) HTN (hypertension) Code(s): I10 - ESSENTIAL (PRIMARY) HYPERTENSION Assessment/Plan IMP ACUTE PULMONARY EMBOLISM LIKELY PROVOKED SECONDARY TO RECENT TRAVEL CHEST PAIN SYNDROME SECONDARY TO ABOVE LLE DVT PLAN ELIQUIS O2 W/U FOR HYPERCOAGULABLE STATE OUTPATIENT OK FOR DISCHARGE DR TOWNSEND Problem List - Problems (1) Pulmonary embolism Code(s): I26.99 - OTHER PULMONARY EMBOLISM WITHOUT ACUTE COR PULMONALE Qualifiers: Pulmonary embolism type: other Chronicity: acute Acute cor pulmonale presence: without acute cor pulmonale Qualified Code(s): I26.99 - Other pulmonary embolism without acute cor pulmonale (2) Chest pain Code(s): R07.9 - CHEST PAIN, UNSPECIFIED
--- NOTE | 2016-11-01 15:10 | DS ---
Physical Examination Vital Signs: Vital Signs Temperature 99.2 F 11/01/16 10:00 Pulse Rate 84 11/01/16 10:00 Respiratory Rate 18 11/01/16 10:00 Blood Pressure 122/83 11/01/16 10:00 O2 Sat by Pulse Oximetry (%) 97 11/01/16 09:00 Constitutional: Yes: No Distress HENT: Yes: Atraumatic Cardiovascular: Yes: Regular Rate and Rhythm Respiratory: Yes: CTA Bilaterally Gastrointestinal: Yes: Normal Bowel Sounds Extremities: Yes: WNL Neurological: Yes: Alert, Oriented Labs: CBC, BMP 11/01/16 05:35 11/01/16 05:35 Discharge Summary Reason For Visit: PULMONARY EMBOLISM Current Active Problems Anxiety and depression (Acute) Chest pain (Acute) DVT (deep venous thrombosis) (Acute) HTN (hypertension) (Acute) Pulmonary embolism (Acute) Condition: Stable - Instructions Diet, Activity, Other Instructions: prn robitussin tid prn for cough Referrals: Suha Ricks MD [Staff Physician] - STAFF,NOT ON [Primary Care Provider] - - Home Medications Comprehensive Discharge Medication List: Ambulatory Orders NK [No Known Home Medication] 10/27/16 dc home follow up pmd/hematology 1 -2 weeks
[2016-11-01 17:56] VITALS: BP 120/58; PULSE 87; TEMP 99.4
--- NOTE | 2016-11-01 19:08 | PN ---
Progress Note (short form) - Note Progress Note: PAtient seen and examined mild cough. No hemoptysis. No fever/chills Last Vital Signs Temp Pulse Resp BP Pulse Ox 99.4 F 87 20 120/58 97 11/01/16 17:00 11/01/16 17:00 11/01/16 17:00 11/01/16 17:00 11/01/16 09:00 Oropharynx: No thrush, No mucositis Cor: RSR, No murmurs, No gallops Lungs: Clear to P&A Abd: Soft, Normal bowel sounds, No organomegaly Ext:No significant edema Abnormal Lab Results 11/01/16 11/01/16 05:35 05:35 MPV 7.1 L Monocytes % 13.5 H Eosinophils % 9.8 H AST 72 H D Total Protein 6.1 L Albumin 2.7 L Meds reviewed \ A/P 66 y/o male with LLL lobar/segmental PE, presenting with pleuritic chest pain. Recent travel to [place] 2weeks ago. ? provoked DVT On heparin drip normal baseline Pt/PTT/renal function/liver enzymes.platelets [id number] switched to eliquis Will need age appropriate malignancy w/u reports having had colonoscopy a year ago which was nl per patient not anemic. prostate cancer screening as out patient low TSH/high fT4--endocrine consult discussed with primary team in great detail. She wanted me to prescribe eliquis. Discussed with patients daughter --to get eliquis 10mg bid through sunday and then switch to 5mg bid from Sat. Rediscussed benefits/risks/ complications in great detail to f/u with PMD as outpatient
== END 2016-11-01 05:55 | disposition home or self-care (01) | DRG 134 ==
LOC: FER 14:05 → J4W 23:10
PROVIDERS: ADMIT Internal Medicine; ATTEND Internal Medicine
DX: I26.99 Other pulmonary embolism without acute cor pulmonale (principal); I10 Essential (primary) hypertension; I82.492 Acute embolism and thrombosis of other specified deep vein of left lower extremity; F41.9 Anxiety disorder, unspecified; F32.9 Major depressive disorder, single episode, unspecified; R07.89 Other chest pain
CPT/HCPCS: 36415; 71010-TC; 71020-TC; 71275-TC; 80053; 80061; 82272; 82550; 83721; 84439; 84443; 84481; 84484; 85025; 85027; 85379; 85610; 85730; 93005; 93010; 93306-TC; 93970-TC; 99285-25; J1644

== ENCOUNTER 2016-11-07 13:45 | Emergency (ER) | payer OTHER ==
--- NOTE | 2016-11-07 13:51 | PDOC ---
History of Present Illness - General History Source: Patient, Family (Daughter ), Old Records Exam Limitations: No Limitations - History of Present Illness Initial Comments: 11/07/16 14:52 The patient is a 66 year old male, with a significant past medical history of hyperlipidemia (not on medication), a recent pulmonary embolism (10/27/2016) and a recent LLE DVT (10/28/2016), who presents to the emergency department with a productive cough for the past week. The patient states that he has been coughing up yellow tinged sputum. The patient additionally reports subjective fevers at home in addition to chills. The patient was most recently seen in this ED on 10/27/2016 with chest pain and difficulty breathing, was diagnosed with an acute pulmonary embolism, was admitted and discharged home on 11/01/2016 taking Eliquis 10 mg BID for 7 days then switching to Eliquis 5 mg BID, which the patient states he has been compliant with. The patient reports that he began coughing shortly after he was discharged on 11/01/2016. The patient denies chest pain or shortness of breath. The patient denies nausea or vomiting. The patients primary language is Upper Sorbian, his daughter is at the bedside translating. Allergies: None reported. Past Surgical History: None reported. Social History: Non smoker. Denies alcohol or drug use. PCP: Dr. Suha Ricks <Pricila Nevarez - Last Filed: 11/07/16 16:20> - General History Source: Patient, Old Records Exam Limitations: No Limitations <Jil Hu - Last Filed: 11/07/16 18:14> - General Chief Complaint: Respiratory Stated Complaint: COUGH Time Seen by Provider: 11/07/16 13:51 Past History <Pricila Nevarez - Last Filed: 11/07/16 16:20> - Past Medical History Hypercholesterolemia: Yes (NO MEDS) - Psycho/Social/Smoking Cessation Hx Anxiety: No Suicidal Ideation: No Smoking History: Never smoked Hx Alcohol Use: No Drug/Substance Use Hx: No Substance Use Type: None <Jil Hu - Last Filed: 11/07/16 18:14> - Past Medical History Allergies/Adverse Reactions: Allergies Allergy/AdvReac Type Severity Reaction Status Date / Time No Known Allergies Allergy Verified 11/07/16 13:47 Home Medications: Ambulatory Orders Apixaban [Eliquis -] 10 mg PO BID@0030,1230 #0 tablet 11/01/16 Review of Systems - Review of Systems Able to Perform ROS?: Yes Comments:: 11/07/16 14:43 GENERAL/CONSTITUTIONAL: +Subjective fever, chills. No weakness. HEAD, EYES, EARS, NOSE AND THROAT: No change in vision. No ear pain or discharge. No sore throat. CARDIOVASCULAR: No chest pain or shortness of breath. RESPIRATORY: +Cough. No wheezing or hemoptysis. GASTROINTESTINAL: No nausea, vomiting, diarrhea or constipation. GENITOURINARY: No dysuria, frequency, or change in urination. MUSCULOSKELETAL: No joint or muscle swelling or pain. No neck or back pain. SKIN: No rash. NEUROLOGIC: No headache, vertigo, loss of consciousness, or change in strength/ sensation. ENDOCRINE: No increased thirst. No abnormal weight change. HEMATOLOGIC/LYMPHATIC: No anemia, easy bleeding, or history of blood clots. ALLERGIC/IMMUNOLOGIC: No hives or skin allergy. <Pricila Nevarez - Last Filed: 11/07/16 16:20> *Physical Exam - Vital Signs Last Vital Signs Temp Pulse Resp BP Pulse Ox 82 18 109/72 100 11/07/16 13:45 11/07/16 13:45 11/07/16 13:45 11/07/16 13:45 - Physical Exam Comments: 11/07/16 14:17 GENERAL: Awake, alert, and fully oriented, in no acute distress. HEAD: No signs of trauma. EYES: PERRLA, EOMI, sclera anicteric, conjunctiva clear. ENT: Auricles normal inspection, hearing grossly normal, nares patent, oropharynx clear without exudates. Moist mucosa. NECK: Normal ROM, supple, no lymphadenopathy, JVD, or masses. LUNGS: Bilateral wheezing at the lung bases. Breath sounds equal. No crackles. HEART: Regular rate and rhythm, normal S1 and S2, no murmurs, rubs or gallops. ABDOMEN: Soft, nontender, normoactive bowel sounds. No guarding, no rebound. No masses. EXTREMITIES: Normal range of motion, no edema. No clubbing or cyanosis. No cords, erythema, or tenderness. NEUROLOGICAL: Cranial nerves II through XII intact. Normal speech, normal gait. SKIN: Warm, dry, normal turgor, no rashes or lesions noted. <Pricila Nevarez - Last Filed: 11/07/16 16:20> ED Treatment Course - LABORATORY CBC & Chemistry Diagram: 11/07/16 14:35 11/07/16 14:35 <Pricila Nevarez - Last Filed: 11/07/16 16:20> - LABORATORY CBC & Chemistry Diagram: 11/07/16 14:35 11/07/16 14:35 <Jil Hu - Last Filed: 11/07/16 18:14> Medical Decision Making - Medical Decision Making 11/07/16 16:20 EXAM: RAD/CHEST PA & LAT Reviewed By: Dr. Forrest Vaz IMPRESSION: No acute chest pathology. Some abdominal distention. <Pricila Nevarez - Last Filed: 11/07/16 16:20> - Medical Decision Making 11/07/16 16:05 66-year-old male with recent DVT and pulmonary embolism diagnosed 2 weeks ago when he had chest pain presents the emergency Department with complaints of fever at home and chills as well as productive cough times one week. Differential diagnosis includes but is not limited to: Pneumonia, influenza, viral URI, electrolyte abnormality, toxic/metabolic derangement. Plan: 1. Chest x-ray 2. EKG 3. Labs 4. Influenza PCR 5. Observe and reevaluate 11/07/16 16:55 Addendum: Labs are reviewed and are noted inthe EMR. CXR is negative for acute pulmonary disease and influenza PCR is negative. The plan is to discharge home, follow-up with PCP tomorrow as scheduled and return to the ED if symptoms persist, worsen or new symptoms arise. <Jil Hu - Last Filed: 11/07/16 18:14> *DC/Admit/Observation/Transfer - Attestations Scribe Attestion: 11/07/16 14:13 Documentation prepared by Pricila Nevarez, acting as director of medical staff services for Jil Hu MD. <Pricila Nevarez - Last Filed: 11/07/16 16:20> - Discharge Dispostion Admit: No - Attestations Physician Attestion: 11/07/16 16:06 I, Dr. Jil Hu, attest that the scribes documentation that appears above has been prepared under my direction and personally reviewed by me in its entirety. I confirmed that the note above accurately reflects all work, treatment, procedures, and medical decision-making performed by me. <Jil Hu - Last Filed: 11/07/16 18:14> Diagnosis at time of Disposition: Cough - Discharge Dispostion Disposition: HOME Condition at time of disposition: Stable - Patient Instructions Printed Discharge Instructions: DI for Acute Bronchitis Additional Instructions: You have an upper respiratory infection likely secondary to a virus. You may take tylenol or ibuprofen as needed for fever or body aches. Follow-up with your primary care physician tomorrow as scheduled. Return to the Emergency Department if your symptoms persist, worsen or new symptoms arise.
[2016-11-07 13:54] VITALS: BMI 31.3
[2016-11-07] MEDS ORDERED: ALBUTEROL SO4 2.5/IPRATROPIUM 0.5 INH SOL 3 ML VIAL.NEB. NEB ONE ×2 (14:17→14:38)
[2016-11-07 15:14] LABS: BASOPHIL 3.3 % (0-2.0); MCH 28.9 pg (25.7-33.7); MCHC 33.6 g/dl (32.0-35.9); MEAN CELL VOLUME 85.9 fl (80-96); MEAN PLT VOLUME 7.9 fl (7.5-11.1); NEUTROPHILS 33.5 % (42.8-82.8); PLATELET COUNT 256 K/MM3 (134-434); RDW 11.6 % (11.9-15.9); WHITE BLOOD COUNT 4.8 K/mm3 (4.0-10.0)
[2016-11-07 15:17] LABS: ALBUMIN 3.3 g/dl (3.5-5.0); ALK PHOS 78 U/L (32-92); ANION GAP 6 (8-16); BILIRUBIN,TOTAL 0.4 mg/dl (0.2-1.0); CALCIUM 9.4 mg/dl (8.4-10.2); CO2 26 mmol/L (22-28); CREATININE 0.9 mg/dl (0.6-1.3); GLUCOSE,RANDOM 108 mg/dl (74-106); SGOT/AST 36 U/L (10-42); SGPT/ALT 42 U/L (10-40); TOT PROT 6.8 g/dl (6.4-8.3)
[2016-11-07 18:26] VITALS: BP 116/68; PULSE 77
[2016-11-07 18:27] VITALS: TEMP 98.8
== END 2016-11-07 18:40 | disposition home or self-care (01) ==
LOC: FER 13:45
PROC: 3E0F7GC Introduction of Other Therapeutic Substance into Respiratory Tract, Via Natural or Artificial Opening (ICD-10-PCS; principal; 2016-11-07)
DX: R05 Cough (principal)
CPT/HCPCS: 36415; 71020-TC; 80053; 83605; 85025; 87804; 94640; 99284-25